=== PATIENT | female | born 1965 | race Caucasian/White ===

== ENCOUNTER 2019-11-23 17:28 | Outpatient (CLI) | payer BC, SELFPAY ==
--- NOTE | ~2019-11-23 | XR_ITS ---
EXAMINATION: XR abdomen/kub 1V INDICATION: Left ureteral stone TECHNIQUE: Supine views of the abdomen were obtained on 2 radiographs. COMPARISON: None FINDINGS: Motion artifact slightly limits the examination. There is possible left nephrolithiasis. A right pelvic calcification likely reflects a phlebolith. There are surgical changes near the gastroes ophageal junction. The bowel gas pattern is normal. Moderate bilateral hip osteoarthritis is noted. IMPRESSION: 1. Possible left nephrolithiasis, sensitivity limited by motion artifact. Reviewed, dictated and finalized at location A.
== END 2019-11-23 17:29 | disposition home or self-care (01) ==
LOC: ANHIMG 17:35
PROVIDERS: PCP Family Medicine; Visit Provider Urology
DX: N20.1 Calculus of ureter (principal)
CPT/HCPCS: 74018

== ENCOUNTER → 2021-06-04 15:33 | Outpatient (REF) | payer BC, SELFPAY | LOC: ANHLAB 15:33 | PROVIDERS: PCP Family Medicine; Visit Provider Nurse Practitioner | DX: D18.01 Hemangioma of skin and subcutaneous tissue (principal) | CPT/HCPCS: 88305 ==